=== PATIENT | male | born 2000 | race African-American/Black ===

== ENCOUNTER 2021-05-13 13:57 | Emergency (ER) | payer OTHER ==
[2021-05-13] MEDS ORDERED: METHYLPREDNISOLONE 40 MG INJ ONE (15:30)
--- NOTE | 2021-05-13 16:37 | ER ---
Nurse's Notes [facility] Name: José Miguel Goddard Age: 20 yrs Sex: Male : 2000 Arrival Date: 05/13/2021 Time: 14:07 Bed Treatment Private MD: Diagnosis: Allergy, unspecified Presentation: 05/13 14:53 Chief complaint: Patient states: his throat feels like it is opening and closing. ap3 Coronavirus screen: At this time, the client does not indicate any symptoms associated with coronavirus-19. Ebola Screen: No symptoms or risks identified at this time. Initial Sepsis Screen: Does the patient meet any 2 criteria? No. Patient's initial sepsis screen is negative. Does the patient have a suspected source of infection? No. Patient's initial sepsis screen is negative. Risk Assessment: Do you want to hurt yourself or someone else? Patient reports no desire to harm self or others. Onset of symptoms was May 13, 2021. 14:53 Method Of Arrival: Ambulatory ap3 14:53 Acuity: BRIANNA 4 ap3 Triage Assessment: 14:54 General: Appears in no apparent distress. comfortable, Behavior is calm, cooperative, ap3 appropriate for age. Pain: Complains of pain in uvula, left aspect of posterior pharynx and right aspect of posterior pharynx. EENT: Reports pain in uvula, left aspect of posterior pharynx and right aspect of posterior pharynx. Neuro: Level of Consciousness is awake, alert, obeys commands, Oriented to person, place, time, situation, Appropriate for age In Home Sales Representative are equal bilaterally Moves all extremities. Gait is steady, Speech is normal, Facial symmetry appears normal. Cardiovascular: Capillary refill < 3 seconds Patient's skin is warm and dry. Respiratory: Airway is patent Respiratory effort is even, unlabored, Respiratory pattern is regular, symmetrical. GI: No signs and/or symptoms were reported involving the gastrointestinal system. : No signs and/or symptoms were reported regarding the genitourinary system. Derm: No signs and/or symptoms reported regarding the dermatologic system. Musculoskeletal: No signs and/or symptoms reported regarding the musculoskeletal system. Historical: - Allergies: 14:53 Acetaminophen; ap3 - Home Meds: 14:53 None [Active]; ap3 - PMHx: 14:53 None; ap3 - PSHx: 14:53 None; ap3 - Immunization history:: Adult Immunizations up to date, Client reports having NOT received the Covid vaccine. - Social history:: Smoking status: Patient denies any tobacco usage or history of. Screenin:55 Abuse screen: Denies threats or abuse. Nutritional screening: No deficits noted. ap3 Tuberculosis screening: No symptoms or risk factors identified. Fall Risk None identified. Assessment: 16:49 Respiratory: Airway is patent Breath sounds are clear. ap3 16:49 EENT: Throat is pink. ap3 Vital Signs: 15:01 BP 143 / 93; Pulse 91; Temp 98.7(O); Pulse Ox 100% ; Weight 88.45 kg; Height 5 ft. 9 ap3 in. (175.26 cm); 15:01 Body Mass Index 28.80 (88.45 kg, 175.26 cm) ap3 ED Course: 14:07 Patient arrived in ED. as 14:52 Fabienne Rodrigues, BARRON is Primary Nurse. ap3 14:53 Triage completed. ap3 14:55 Zechariah Egale PA is PHCP. cp 14:55 Arm band placed on right wrist. ap3 14:56 Martín Yi MD is Attending Physician. cp 14:56 Patient has correct armband on for positive identification. Bed in low position. Call ap3 light in reach. Side rails up X2. Pulse ox on. NIBP on. Door closed. Noise minimized. 16:36 Nancy Romero MD is Referral Physician. cp 16:49 No provider procedures requiring assistance completed. Patient did not have IV access ap3 during this emergency room visit. Administered Medications: 15:32 Not Given (pt took mothers medicationn): SOLU-Medrol (methylPREDNISolone sodium ap3 succinate) 80 mg IM once 16:49 Drug: SOLU-Medrol (methylPREDNISolone sodium succinate) 60 mg Route: IM; Site: right ap3 gluteus; Outcome: 16:36 Discharge ordered by . cp 16:49 Discharged to home ambulatory. ap3 16:49 Condition: good 16:49 Discharge instructions given to patient, Instructed on discharge instructions, follow up and referral plans. medication usage, Demonstrated understanding of instructions, follow-up care, medications, Prescriptions given X 2. 16:49 Patient left the ED. ap3 Signatures: Lavonne Henry Corey, PA PA cp Fabienne Rodrigues, RN RN ap3
--- NOTE | 2021-05-13 16:37 | EDPHYS ---
Physician Documentation [facility] Name: José Miguel Goddard Age: 20 yrs Sex: Male : 2000 Arrival Date: 05/13/2021 Time: 14:07 Bed Treatment Private MD: ED Physician Martín Yi HPI: 05/13 15:05 This 20 yrs old Black Male presents to ER via Ambulatory with complaints of Sore Throat.cp 15:05 The patient presents with uncomfortable, described as fullness but denies dysphagia. cp Reports nasal drainage. Concerned about possible allergy to cat. Took 3 tablets of mom's oral steroids prior to coming to ED. Denies shortness of breath, denies wheeezing. Historical: - Allergies: 14:53 Acetaminophen; ap3 - Home Meds: 14:53 None [Active]; ap3 - PMHx: 14:53 None; ap3 - PSHx: 14:53 None; ap3 - Immunization history:: Adult Immunizations up to date, Client reports having NOT received the Covid vaccine. - Social history:: Smoking status: Patient denies any tobacco usage or history of. ROS: 15:10 Eyes: Negative for injury, pain, redness, and discharge. cp 15:10 Constitutional: Negative for body aches, chills, fever, poor PO intake. 15:10 ENT: Positive for rhinorrhea, Negative for drainage from ear(s), ear pain, difficulty swallowing, difficulty handling secretions, hoarseness. 15:10 Respiratory: Negative for cough, shortness of breath, wheezing. 15:10 Abdomen/GI: Negative for abdominal pain, nausea, vomiting, and diarrhea. 15:10 Skin: Negative for rash. 15:10 Neuro: Negative for altered mental status, headache, weakness. 15:10 All other systems are negative. Exam: 15:15 Constitutional: The patient appears in no acute distress, alert, awake, non-toxic, well cp developed, well nourished. 15:15 Head/Face: Normocephalic, atraumatic. cp 15:15 Eyes: Periorbital structures: appear normal, Conjunctiva: normal, no exudate, no injection, Sclera: no appreciated abnormality, Lids and lashes: appear normal, bilaterally. 15:15 ENT: External ear(s): are unremarkable, Ear canal(s): are normal, clear, TM's: dullness, bilaterally, Nose: is normal, Mouth: Lips: moist, Oral mucosa: pink and intact, moist, Posterior pharynx: Tonsils: no enlargement, no exudate, mild erythema, Uvula: midline, non-edematous, no erythema, swelling, is not appreciated, erythema, that is mild, exudate, is not appreciated. 15:15 Neck: ROM/movement: is normal, is supple, without pain, no range of motions limitations, no meningismus, no nuchal rigidity, Lymph nodes: no appreciated lymphadenopathy. 15:15 Chest/axilla: Inspection: normal. 15:15 Cardiovascular: Rate: normal. 15:15 Respiratory: the patient does not display signs of respiratory distress, Respirations: normal, no use of accessory muscles, no retractions, labored breathing, is not present, Breath sounds: are clear throughout, no decreased breath sounds, no stridor, no wheezing. 15:15 Skin: no rash present. Vital Signs: 15:01 BP 143 / 93; Pulse 91; Temp 98.7(O); Pulse Ox 100% ; Weight 88.45 kg; Height 5 ft. 9 ap3 in. (175.26 cm); 15:01 Body Mass Index 28.80 (88.45 kg, 175.26 cm) ap3 MDM: 14:57 Patient medically screened. cp 15:15 Differential diagnosis: group A strep tonsillitis, pharyngitis, tonsillitis, uvulitis, cp allergic rhinitis, anaphylaxis, allergy. 16:35 Data reviewed: vital signs, nurses notes, lab test result(s). cp 16:35 Counseling: I had a detailed discussion with the patient and/or guardian regarding: the cp historical points, exam findings, and any diagnostic results supporting the discharge/admit diagnosis, lab results, to return to the emergency department if symptoms worsen or persist or if there are any questions or concerns that arise at home. 05/13 15:02 Order name: Strep ap3 05/13 16:03 Order name: Throat Culture EDMS Administered Medications: 15:32 Not Given (pt took mothers medicationn): SOLU-Medrol (methylPREDNISolone sodium ap3 succinate) 80 mg IM once 16:49 Drug: SOLU-Medrol (methylPREDNISolone sodium succinate) 60 mg Route: IM; Site: right ap3 gluteus; Disposition Summary: 05/13/21 16:36 Discharge Ordered Location: Home cp Problem: new cp Symptoms: have improved cp Condition: Stable cp Diagnosis - Allergy, unspecified cp Followup: cp - With: Nancy Romero MD - When: 2 - 3 days - Reason: Worsening of condition Discharge Instructions: - Discharge Summary Sheet cp - Allergy Skin Testing cp - Allergy Blood Testing cp Forms: - Medication Reconciliation Form cp - Thank You Letter cp - Antibiotic Education cp - Prescription Opioid Use cp Prescriptions: - Zyrtec 10 mg Oral Tablet - take 1 tablet by ORAL route once daily As needed; 20 tablet; Refills: 0, cp Product Selection Permitted - Medrol ([place]) 4 mg Oral Tablets, Dose Pack - take 1 tablet by ORAL route as directed - follow package instructions; 1 cp packet; Refills: 0, Product Selection Permitted Addendum: 05/17/2021 19:02 Co-signature as Attending Physician, Martín Yi MD I agree with the assessment and r n plan of care. Attestation: The patient's history, exam findings, diagnostics, and a summary of any interventions or procedures was reviewed in detail with Zechariah KNOTT. Signatures: Dispatcher [employer] EDMartín Townsend MD MD rn Page, Corey, PA PA cp Prokisch, Amanda RN RN ap3
[2021-05-13 17:25] VITALS: BP 143/93; TEMP 98.7; O2SAT 100
== END 2021-05-13 16:49 | disposition home or self-care (01) ==
LOC: ER 13:57 → EDBD 13:57 → ER 16:49
DX: R07.0 Pain in throat (principal); J34.89 Other specified disorders of nose and nasal sinuses; Z88.6 Allergy status to analgesic agent
CPT/HCPCS: 87070; 87081; 96372; 99283; J2920